=== PATIENT | female | born 1980 | race Caucasian/White ===

== ENCOUNTER 2023-03-26 09:00 | Outpatient (CLI) | payer OTHER, SELFPAY ==
--- NOTE | ~2023-03-26 | MR_ITS ---
EXAMINATION: MR lumbar spine wo con DATE: 03/26/2023 09:35 INDICATION: Lumbar radicular pain TECHNIQUE: Magnetic resonance imaging (MRI) of the lumbar spine was performed without intravenous con trast. Sequences included sagittal T2-weighted FSE, sagittal T2-weighted FS FSE, sagittal T1-weighted FSE, and axial T2-weighted FSE. COMPARISON: None FINDINGS: Alignment is normal. Vertebral body heights are normal. Normal marrow signal. Desiccation and mild d isc height loss at L2-L3 through L5-S1. The conus medullaris terminates at L1-L2. There is normal sig nal in the caudal spinal cord. Paravertebral soft tissues are unremarkable. The following disc levels are specifically discussed: T12-L1: The disc does not extend beyond the endplate margin. There is mild bilateral facet joint oste oarthritis. There is no neural foraminal stenosis. There is no central canal stenosis. L1-L2: Disc is minimally bulging. There is mild bilateral facet joint osteoarthritis. There is no joana ral foraminal stenosis. There is no central canal stenosis. L2-L3: Disc is mildly bulging with superimposed left paracentral disc protrusion. There is hypertroph y of the ligamentum flavum. There is mild left and mild to moderate right facet joint osteoarthritis . There is mild bilateral neural foraminal stenosis. There is moderate central canal stenosis with as ymmetric narrowing of the lateral recesses, mild on the right and moderate on the left. L3-L4: Disc is mildly bulging with annular fissures in the left foraminal zone and more prominently a nteriorly. There is hypertrophy of the ligamentum flavum. There is moderate bilateral facet joint os teoarthritis. There is mild bilateral neural foraminal stenosis. There is mild to moderate central ca nal stenosis. L4-L5: Disc is mildly bulging with left foraminal zone annular fissure There is mild to moderate bila teral facet joint osteoarthritis. There is mild bilateral neural foraminal stenosis. There is minimal central canal stenosis. L5-S1: Disc is bulging with superimposed annular fissure and central disc protrusion. There is modera te left and mild to moderate right facet joint osteoarthritis. There is mild to moderate bilateral ne ural foraminal stenosis. There is mild central canal stenosis and narrowing of the left and right lat eral recesses. IMPRESSION: 1. Mild lumbar spondylosis. Reviewed, dictated and finalized at location A. IMPRESSION: 1. Mild lumbar spondylosis.
== END 2023-03-26 09:01 ==
PROVIDERS: PCP Internal Medicine; Visit Provider Nurse Practitioner Family
DX: M47.26 Other spondylosis with radiculopathy, lumbar region (principal)
CPT/HCPCS: 72148